=== PATIENT | male | born 1995 | race Caucasian/White ===

== ENCOUNTER 2021-07-02 17:01 | Emergency (ER) | payer OTHER, SELFPAY ==
[2021-07-02 17:10] VITALS: BP 148/88; PULSE 65; RESP 16; TEMP 37.3; O2SAT 100
--- NOTE | 2021-07-02 17:26 | ED.EAR ---
HPI - Ear Problem General Chief complaint: Ear Stated complaint: Ear Pain Time Seen by Provider: 07/02/21 17:20 Source: patient and RN notes reviewed Mode of arrival: ambulatory Limitations: no limitations History of Present Illness HPI Narrative: Patient presents today complaining of right ear pain since last night with decreased hearing. He currently rates his pain 2/10 and has been using [id number] eardrops without relief. Denies any additional symptoms to include rhinorrhea, congestion, sore throat. No recent antibiotic use. MD Complaint: ear pain and decreased hearing Related Data Allergies Allergy/AdvReac Type Severity Reaction Status Date / Time No Known Allergies Allergy Verified 07/02/21 17:19 Review of Systems Review of Systems: CONSTITUTIONAL: Denies body aches, fever, chills, or sweats. EYES: Denies visual changes, redness, or discharge. ENT: Denies rhinorrhea, congestion, sore throat. + Right ear pain with decreased hearing CARDIOVASCULAR: Denies chest pain, palpitations, or edema. RESPIRATORY: Denies cough or dyspnea. GASTROINTESTINAL: Denies abdominal pain, nausea, vomiting, or diarrhea. GENITOURINARY: Denies dysuria or hematuria. SKIN: Denies rash, itching, or wounds. MUSCULOSKELETAL: Denies back pain, joint pain, or myalgia. NEUROLOGIC: Denies headache, numbness, tingling, or weakness. PSYCH: Denies depression or anxiety. PMFSH Comments At time of signature, I have reviewed and agree with nursing past medical, surgical, social and family history unless otherwise noted. Please see nursing chart for further information. There is no relevant family history pertinent to the presenting complaint Exam Narrative: GENERAL: Well-appearing, well-nourished, and in no acute distress. HEAD: Normocephalic, atraumatic. EYES: EOMI. No redness or drainage. Conjunctivae normal. ENT: Mucous membranes pink and moist. Nares clear. No rhinorrhea. Left TM normal. Right TM erythematous and bulging. NECK: Normal AROM. Supple. No lymphadenopathy. CHEST: No respiratory distress. EXTREMITIES: Normal range of motion. No edema. SKIN: Warm, dry, no rash. Capillary refill normal. Normal skin turgor. NEURO: No focal deficits. Alert and oriented x3. Gait steady. PSYCH: Normal affect. No signs of depression or anxiety. Course Course Level of Care: Express Care Visit Vital Signs Vital signs: Vital Signs Temperature 99.1 F 07/02/21 17:10 Pulse Rate 65 07/02/21 17:10 Respiratory Rate 16 07/02/21 17:10 Blood Pressure 148/88 H 07/02/21 17:10 Pulse Oximetry 100 07/02/21 17:10 Temperature 99.1 F 07/02/21 17:10 Pulse Rate 65 07/02/21 17:10 Respiratory Rate 16 07/02/21 17:10 Blood Pressure 148/88 H 07/02/21 17:10 Pulse Oximetry 100 07/02/21 17:10 Reviewed. Pt has been instructed to follow up with his PCP regarding his elevated blood pressure today. Medical Decision Making Differential Diagnosis Differential Diagnosis: Otitis media, otitis externa, ruptured TM, serous otitis, eustachian tube dysfunction, cerumen impaction Vital Signs Vital Signs: Vital Signs Temperature 99.1 F 07/02/21 17:10 Pulse Rate 65 07/02/21 17:10 Respiratory Rate 16 07/02/21 17:10 Blood Pressure 148/88 H 07/02/21 17:10 Pulse Oximetry 100 07/02/21 17:10 Temperature 99.1 F 07/02/21 17:10 Pulse Rate 65 07/02/21 17:10 Respiratory Rate 16 07/02/21 17:10 Blood Pressure 148/88 H 07/02/21 17:10 Pulse Oximetry 100 07/02/21 17:10 Critical Care Time Critical Care Time Critical Care Time: No Discharge Plan Discharge Clinical Impression: Acute suppur right otitis media w/o spontan rupture tympanic membrane Qualifiers: Recurrence: non-recurrent Qualified Code(s): H66.001 - Acute suppurative otitis media without spontaneous rupture of ear drum, right ear Patient Disposition: Home, Self-Care Condition: Stable Instructions: Antibiotic Form, Ear Infection (ED) Ad
== END 2021-07-02 17:30 | disposition home or self-care (01) ==
PROVIDERS: Emergency Provider Nurse Practitioner
DX: H66.001 Acute suppurative otitis media without spontaneous rupture of ear drum, right ear (principal)
CPT/HCPCS: 99213; G0463